=== PATIENT | female | born 1990 | race Hispanic/Latino ===

== ENCOUNTER 2018-05-07 21:00 | Emergency (ER) | payer SELFPAY ==
[2018-05-07] MEDS ORDERED: predniSONE 20 MG TAB ONE (21:29)
== END 2018-05-07 21:35 | disposition home or self-care (01) ==
LOC: NAV ERS 21:00
DX: T78.40XA Allergy, unspecified, initial encounter (principal); F32.9 Major depressive disorder, single episode, unspecified; F17.210 Nicotine dependence, cigarettes, uncomplicated
CPT/HCPCS: 99283; J7506

== ENCOUNTER 2018-09-26 16:05 | Emergency (ER) | payer SELFPAY ==
[2018-09-26] MEDS ORDERED: Acetaminophen 325 MG TAB ONE (16:25)
--- NOTE | 2018-09-26 16:42 | RAD ---
Chest 2 views HISTORY: Dyspnea. Fever. FINDINGS: Cardiac silhouette and pulmonary vasculature stomach is midline. No confluent airspace cons olidation, pneumothorax, or pleural fluid. 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 IMPRESSION: No active cardiopulmonary abnormalities are demonstrated.
== END 2018-09-26 17:36 | disposition home or self-care (01) ==
LOC: NAV ERS 16:05
DX: J02.9 Acute pharyngitis, unspecified (principal); F17.210 Nicotine dependence, cigarettes, uncomplicated
CPT/HCPCS: 71046; 87081; 87430